=== PATIENT | male | born 1975 ===

== ENCOUNTER 2021-01-21 10:11 | Emergency (ER) | payer SELFPAY ==
[~2021-01-21] VITALS: Ht 165.1 cm; Wt 72.7 kg
[2021-01-21] MEDS ORDERED: methylPREDNISolone 125 MG (Solu-MEDROL) VIAL ONE (10:13)
[2021-01-21] MEDS ORDERED: diphenhydrAMINE 50 MG/ML INJ (BENADRYL) ONE (10:13)
[2021-01-21] MEDS ORDERED: FAMOTIDINE 20MG/2ML IV (PEPCID) ONE (10:13)
[2021-01-21] MEDS ORDERED: diphenhydrAMINE 50 MG/ML INJ (BENADRYL) IVP ONE (10:30)
[2021-01-21] MEDS ORDERED: methylPREDNISolone 125 MG (Solu-MEDROL) VIAL IVP ONE (10:30)
[2021-01-21] MEDS ORDERED: FAMOTIDINE 20MG/2ML IV (PEPCID) IVP ONE (10:30)
--- NOTE | 2021-01-21 11:35 | ED General ---
General Chief Complaint: Allergic Reaction Stated Complaint: ANAPHYLAXIS Nursing Triage Note: Patient presents to the ED from [facility] with c/o of anaphylatic reaction. [facility] staff state that the patient presented with trouble breathing and facial swelling. They administered IM epi prior to arrival at the ED. Upon arrival patient reports that his breathing has improved and oxygen saturation 100% on RA. He states that he had eaten shrimp 20 minutes prior to presenting at [facility]. He reports eating shrimp in the past with no issues. Nursing Sepsis Screen: No Definite Risk History of Present Illness Date Seen by Provider: Jan 21, 2021 Time Seen by Provider: 10:30 Initial Comments Patient is a 45-year-old male with history of lisa allergy who presents with acute facial, tongue and lip swelling after eating shrimp 50 minutes prior to ED arrival. Patient initially presented to his PCPs office with allergic symptoms and was given epi shot and escorted to the emergency department. Patient denies chest tightness, shortness of breath, wheezing. No history of asthma. No history of anaphylaxis to her prior seafood allergy. No new medications, household products or food exposures. Patient has previously tolerated seafood. Timing/Duration: 1/2 Hour Severity: Moderate Modifying Factors: improves with Other Associated Systoms: Other Allergies and Home Medications Allergies Coded Allergies: lisa (Verified Allergy, Severe, Anaphylaxis, 01/21/21) shrimp (Verified Allergy, Severe, Anaphylaxis, 01/21/21) Patient Home Medication List Home Medication List Reviewed: Yes Review of Systems Review of Systems Constitutional: see HPI EENTM: see HPI Respiratory: see HPI Cardiovascular: see HPI Gastrointestinal: see HPI Genitourinary: see HPI Musculoskeletal: see HPI Skin: see HPI Psychiatric/Neurological: See HPI Hematologic/Lymphatic: See HPI Immunological/Allergic: see HPI All Other Systems Reviewed Negative Unless Noted: Yes Past [id number]-[id number] Hx Past Med/Social Hx: Reviewed Nursing Past Med/Soc Hx Patient Social History Alcohol Use: Occasionally Uses Alcohol Beverage of Choice: Beer 2nd Hand Smoke Exposure: No Recent Infectious Disease Expo: No Recent Hopitalizations: No Seasonal Allergies Seasonal Allergies: Yes Past Medical History Surgeries: Yes Appendectomy Respiratory: No Cardiac: Yes Hypertension Neurological: No Genitourinary: No Gastrointestinal: Yes ("swollen colon") Endocrine: No HEENT: No Cancer: No Psychosocial: No Integumentary: No Blood Disorders: No Physical Exam Vital Signs Vital Signs - First Documented 01/21/21 10:11 Temp 36.8 Pulse 81 Resp 18 B/P (MAP) 142/89 (106) Pulse Ox 100 O2 Delivery Room Air Capillary Refill : Less Than 3 Seconds Height, Weight, BMI Height: '" Weight: lbs. oz. kg; 26.00 BMI Method: General Appearance: Other Eyes: Bilateral Eye Other (Eyelid, lip, soft palate swelling. No dysphonia drooling or trismus. 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 Norm as Tested Focused Exam Sepsis Stage: Ruled Out Progress/Results/Core Measures Suspected Sepsis Recent Fever Within 48 Hours: No Infection Criteria Present: None New/Unexplained Altered Menta: No Sepsis Screen: No Definite Risk SIRS Temperature: Pulse: 81 Respiratory Rate: 18 Blood Pressure 142 /89 Mean: 106 Results/Orders My Orders Orders - OCTAVIA CORREA DO Diphenhydramine Injection (Benadryl Inje (01/21/21 10:13) Methylprednisolone Sod Succ (Solu-Medrol (01/21/21 10:13) Famotidine Injection (Pepcid Injection) (01/21/21 10:13) Methylprednisolone Sod Succ (Solu-Medrol (01/21/21 10:30) Diphenhydramine Injection (Benadryl Inje (01/21/21 10:30) Famotidine Injection (Pepcid Injection) (01/21/21 10:30) Medications Given in ED Current Medications Medications Dose Ordered Sig/Ho Route Start Time Stop Time Status Last Admin Dose Admin Diphenhydramine HCl 50 mg ONCE ONCE IVP 01/21/21 10:30 01/21/21 10:31 DC 01/21/21 10:29 50 MG Famotidine 40 mg ONCE ONCE IVP 01/21/21 10:30 01/21/21 10:31 DC 01/21/21 10:29 40 MG Methylprednisolone Sodium Succinate 125 mg ONCE ONCE IVP 01/21/21 10:30 01/21/21 10:31 DC 01/21/21 10:28 125 MG Vital Signs/I&O 01/21/21 10:11 Temp 36.8 Pulse 81 Resp 18 B/P (MAP) 142/89 (106) Pulse Ox 100 O2 Delivery Room Air Capillary Refill : Less Than 3 Seconds Blood Pressure Mean: 106 Departure Communication (Admissions) Patient given Benadryl, Solu-Medrol and Pepcid and closely monitored in in the emergency department. No return or progression of symptoms noted. Patient does not exhibit airway swelling posterior pharynx swelling prior to discharge. We will continue supportive care with close PCP follow-up and avoidance of all seafood in the future. Return precautions reviewed. Patient verbalizes understanding and agreement of all discharge instructions prior to departure. Impression Primary Impression: Angioedema Disposition: HOME, SELF-CARE Condition: Stable Departure-Patient Inst. Decision time for Depature: 11:43 Patient Instructions: Angioedema Add. Discharge Instructions: Please avoid future seafood and take newly prescribed medications as directed. Return to the emergency department if worsening of your symptoms. All discharge instructions reviewed with patient and/or family. Voiced understanding. Scripts Famotidine (Pepcid) 20 Mg Tablet 20 MG PO BID, #10 TAB Prov: OCTAVIA CORREA DO 01/21/21 Prednisone (Prednisone) 20 Mg Tab 40 MG PO DAILY, #6 TAB 0 Refills Prov: OCTAVIA CORREA DO 01/21/21 OCTAIVA CORREA DO Jan 21, 2021 11:35
[2021-01-21] MEDS ORDERED: FAMO-119 PO (11:46)
[2021-01-21] MEDS ORDERED: PRD20T PO (11:46)
[2021-01-21 11:57] VITALS: BP 130/66
== END 2021-01-21 11:50 | disposition home or self-care (01) ==
LOC: ER FS 10:16
DX: T78.3XXA Angioneurotic edema, initial encounter (principal)